=== PATIENT | female | born 1930 | race Caucasian/White ===

== ENCOUNTER 2016-09-26 09:11 | Emergency (ER) | payer MEDICARE, OTHER ==
[2016-09-26 11:00] LABS: HEMOGLOBIN 11.2 gm/dl (12.3-15.3); RED BLOOD COUNT 4.53 M/UL (4.00-5.10); WHITE BLOOD COUNT 6.6 K/UL (4.5-11.0)
[2016-09-26 11:22] LABS: BUN/CREATININE RATIO 20 (0-10)
== END 2016-09-26 15:00 | disposition home or self-care (01) ==
LOC: ER1 09:11
PROVIDERS: Physician Assistant
DX: K59.00 Constipation, unspecified (principal); E11.9 Type 2 diabetes mellitus without complications; I10 Essential (primary) hypertension; E78.5 Hyperlipidemia, unspecified; I51.9 Heart disease, unspecified; Z95.5 Presence of coronary angioplasty implant and graft; Z79.84 Long term (current) use of oral hypoglycemic drugs; Z79.899 Other long term (current) drug therapy
CPT/HCPCS: 36415; 71010; 80053; 81001; 82550; 82553; 83690; 83874; 84484; 85025; 93005; 96374; 96375; 99284; J2270; J2405; J7050; Q9962

== ENCOUNTER 2016-11-24 10:20 | Observation (INO) | payer MEDICARE, OTHER ==
[~2016-11-24] VITALS: Ht 157.5 cm; Wt 74.4 kg
[2016-11-24 11:44] LABS: RED BLOOD COUNT 4.47 M/UL (4.00-5.10); WHITE BLOOD COUNT 6.9 K/UL (4.5-11.0)
[2016-11-24 12:05] LABS: BUN/CREATININE RATIO 14 (0-10)
[2016-11-24] MEDS ORDERED: ASPIR-LOW81 MG PO (19:11)
[2016-11-24] MEDS ORDERED: VITAMIN B-121000 MC3 PO (19:11)
[2016-11-24] MEDS ORDERED: GLUCOPHAGE500 MG PO (19:12)
[2016-11-24] MEDS ORDERED: VITAMIN D 11000 UNIT PO (19:12)
[2016-11-24] MEDS ORDERED: SYNTHROID125 MCG PO (19:13)
[2016-11-24] MEDS ORDERED: OMEPRAZOLE40 MG PO (19:13)
[2016-11-24] MEDS ORDERED: NORVASC 5 MG TAB5 MG PO (19:13)
[2016-11-24] MEDS ORDERED: LISINOPRIL40 MG PO (19:14)
[2016-11-24] MEDS ORDERED: CRESTOR10 MG PO (19:14)
[2016-11-24] MEDS ORDERED: SYNTHROID112 MCG PO (19:36)
[2016-11-25 05:41] LABS: HEMOGLOBIN 10.9 gm/dl (12.3-15.3); RED BLOOD COUNT 4.55 M/UL (4.00-5.10); WHITE BLOOD COUNT 6.3 K/UL (4.5-11.0)
[2016-11-25] MEDS ORDERED: HYGROTON TAB 2525 MG PO (17:08)
[2016-11-25] MEDS ORDERED: IMDUR ER TAB 6060 MG PO (17:09)
[2016-11-25] MEDS ORDERED: NITROGLYCERIN0.4 MG SL (17:15)
[2016-11-25] MEDS ORDERED: FERROUS SULFAT325 M2 PO (17:30)
[2016-11-25] MEDS ORDERED: BIOTIN800 MCG PO (17:30)
== END 2016-11-25 18:02 | disposition home or self-care (01) ==
LOC: ER1 10:20 → ZEROF 12:45 → MED SURG 4 18:21
PROVIDERS: Emergency Medicine; ADMIT Emergency Medicine
DX: R07.9 Chest pain, unspecified (principal); R00.2 Palpitations; I25.10 Atherosclerotic heart disease of native coronary artery without angina pectoris; E11.9 Type 2 diabetes mellitus without complications; I10 Essential (primary) hypertension; E78.5 Hyperlipidemia, unspecified; E03.9 Hypothyroidism, unspecified; E53.8 Deficiency of other specified B group vitamins; K21.9 Gastro-esophageal reflux disease without esophagitis; M54.6 Pain in thoracic spine; D50.9 Iron deficiency anemia, unspecified; Z79.82 Long term (current) use of aspirin; Z79.899 Other long term (current) drug therapy; Z79.891 Long term (current) use of opiate analgesic; Z90.710 Acquired absence of both cervix and uterus; Z98.49 Cataract extraction status, unspecified eye; Z95.5 Presence of coronary angioplasty implant and graft
CPT/HCPCS: ECHO; 36415; 71010; 78452; 80048; 80053; 80061; 82550; 82553; 82962; 83036; 83735; 84439; 84443; 84484; 85025; 93005; 93017; 93306; 99285; A9502; G0378; J2785

== ENCOUNTER 2020-09-19 16:57 | Observation (INO) | payer MEDICARE, OTHER ==
[~2020-09-19] VITALS: Ht 154.9 cm; Wt 72.6 kg
[~2020-09-19 16:57] MED LIST: ASPIR-LOW81 MG PO; BIOTIN800 MCG PO; CRESTOR10 MG PO; FERROUS SULFAT325 M2 PO; GLUCOPHAGE500 MG PO; HYGROTON TAB 2525 MG PO; ISOSORBIDE MONO30 MG PO; LISINOPRIL40 MG PO; NITROGLYCERIN0.4 MG SL; NORVASC 5 MG TAB5 MG PO; OMEPRAZOLE40 MG PO; SYNTHROID112 MCG PO; SYNTHROID125 MCG PO; VITAMIN B-121000 MC3 PO; VITAMIN D 11000 UNIT PO
[2020-09-19 19:13] LABS: HEMOGLOBIN 8.8 gm/dl (12.3-15.3); RED BLOOD COUNT 4.03 M/UL (4.00-5.10); WHITE BLOOD COUNT 6.4 K/UL (4.5-11.0)
[2020-09-19] MEDS ORDERED: VITAMIN D21250 MCG PO (21:32)
[2020-09-19] MEDS ORDERED: DILTIAZEM 12HR120 MG PO (21:33)
== END 2020-09-20 18:04 | disposition home or self-care (01) ==
LOC: ER1 16:57 → CDU 21:12 → M/S 21:12
PROVIDERS: Physician Assistant Medical; ADMIT Internal Medicine
DX: R07.89 Other chest pain (principal); I48.20 Chronic atrial fibrillation, unspecified; I10 Essential (primary) hypertension; I25.10 Atherosclerotic heart disease of native coronary artery without angina pectoris; E11.9 Type 2 diabetes mellitus without complications; E03.9 Hypothyroidism, unspecified; D50.9 Iron deficiency anemia, unspecified; Z95.5 Presence of coronary angioplasty implant and graft; Z20.822 Contact with and (suspected) exposure to COVID-19; Z82.49 Family history of ischemic heart disease and other diseases of the circulatory system; Z98.890 Other specified postprocedural states; Z90.710 Acquired absence of both cervix and uterus; Z88.1 Allergy status to other antibiotic agents; Z88.2 Allergy status to sulfonamides; Z79.84 Long term (current) use of oral hypoglycemic drugs; Z79.82 Long term (current) use of aspirin; Z79.899 Other long term (current) drug therapy
CPT/HCPCS: 36415; 71045; 80053; 82550; 82553; 82962; 83690; 83735; 83874; 83880; 84439; 84443; 84484; 85025; 93005; 99285; G0378; U0002

== ENCOUNTER → 2020-10-16 | Outpatient (CLI) | payer MEDICARE, OTHER ==
[~2020-10-16] MED LIST changes: +DILTIAZEM 12HR120 MG PO; +VITAMIN D21250 MCG PO
== END ==
LOC: HEART 5 08:30
DX: I25.10 Atherosclerotic heart disease of native coronary artery without angina pectoris (principal); E78.00 Pure hypercholesterolemia, unspecified; I10 Essential (primary) hypertension; R00.2 Palpitations
CPT/HCPCS: 93306

== ENCOUNTER 2021-04-20 08:45 | Inpatient (IN) | payer MEDICARE, OTHER ==
[~2021-04-20] VITALS: Ht 157.5 cm; Wt 73.5 kg
[2021-04-20 09:34] LABS: HEMOGLOBIN 13.9 gm/dl (12.3-15.3); RED BLOOD COUNT 4.8 M/UL (4.00-5.10); WHITE BLOOD COUNT 6.2 K/UL (4.5-11.0)
[2021-04-20 09:58] LABS: BUN/CREATININE RATIO 10 (0-10)
[2021-04-20] MEDS ORDERED: DILT-XR180 MG PO (16:31)
[2021-04-21 00:40] LABS: HEMOGLOBIN 13.7 gm/dl (12.3-15.3); RED BLOOD COUNT 4.74 M/UL (4.00-5.10); WHITE BLOOD COUNT 7.5 K/UL (4.5-11.0)
[2021-04-22 04:36] LABS: HEMOGLOBIN 14.4 gm/dl (12.3-15.3); RED BLOOD COUNT 4.96 M/UL (4.00-5.10); WHITE BLOOD COUNT 6.9 K/UL (4.5-11.0)
[2021-04-22 19:53] LABS: HEMOGLOBIN 13.3 gm/dl (12.3-15.3); RED BLOOD COUNT 4.64 M/UL (4.00-5.10); WHITE BLOOD COUNT 6.2 K/UL (4.5-11.0)
[2021-04-23 03:29] LABS: HEMOGLOBIN 13.2 gm/dl (12.3-15.3); RED BLOOD COUNT 4.56 M/UL (4.00-5.10); WHITE BLOOD COUNT 6.1 K/UL (4.5-11.0)
[2021-04-23] MEDS ORDERED: BRILINTA 90 MG90 MG PO (08:18)
[2021-04-23] MEDS ORDERED: XARELTO 10 MG T10 MG PO (09:30)
== END 2021-04-23 10:00 | disposition home or self-care (01) | DRG 247 ==
LOC: ER1 08:45 → CDU 11:18 → PROG CARE 12:10
PROVIDERS: Emergency Medicine; Internal Medicine; Internal Medicine Interventional Cardiology; Physician Assistant; ADMIT Internal Medicine
PROC: B24BZZZ Ultrasonography of Heart with Aorta (ICD-10-PCS; principal; 2021-04-21)
PROC: 027034Z Dilation of Coronary Artery, One Artery with Drug-eluting Intraluminal Device, Percutaneous Approach (ICD-10-PCS; 2021-04-22)
PROC: B2111ZZ Fluoroscopy of Multiple Coronary Arteries using Low Osmolar Contrast (ICD-10-PCS; 2021-04-22)
DX: I21.4 Non-ST elevation (NSTEMI) myocardial infarction (principal); I16.9 Hypertensive crisis, unspecified; I48.91 Unspecified atrial fibrillation; E78.5 Hyperlipidemia, unspecified; Z96.612 Presence of left artificial shoulder joint; Z96.611 Presence of right artificial shoulder joint; I12.9 Hypertensive chronic kidney disease with stage 1 through stage 4 chronic kidney disease, or unspecified chronic kidney disease; Z20.822 Contact with and (suspected) exposure to COVID-19; N18.30 Chronic kidney disease, stage 3 unspecified; D50.9 Iron deficiency anemia, unspecified; I16.0 Hypertensive urgency; E11.22 Type 2 diabetes mellitus with diabetic chronic kidney disease; E03.9 Hypothyroidism, unspecified; I25.10 Atherosclerotic heart disease of native coronary artery without angina pectoris; Z95.1 Presence of aortocoronary bypass graft; Z79.82 Long term (current) use of aspirin; Z79.84 Long term (current) use of oral hypoglycemic drugs; Z79.890 Hormone replacement therapy; Z88.1 Allergy status to other antibiotic agents; Z90.710 Acquired absence of both cervix and uterus; Z98.49 Cataract extraction status, unspecified eye; Z82.49 Family history of ischemic heart disease and other diseases of the circulatory system; Z80.8 Family history of malignant neoplasm of other organs or systems; Z88.2 Allergy status to sulfonamides
CPT/HCPCS: ECHO; 36415; 71045; 80048; 80053; 82550; 82553; 82962; 83036; 83735; 83874; 84439; 84443; 84484; 85025; 85027; 85347; 85610; 85730; 93306; 99152; 99153; 99285; C1725; C1769; C1874; C1887; C9600; G0008; J1170; J1644; J1650; J2250; J3010; J3246; J7040; J7070; Q9965; U0002